=== PATIENT | male | born 1995 | race African-American/Black ===

== ENCOUNTER 2021-02-13 22:01 | Emergency (ER) | payer BC ==
[~2021-02-13] VITALS: Ht 175.3 cm; Wt 63.5 kg
--- NOTE | 2021-02-13 22:08 | NUR ---
Pt brought straight back to [facility] by garment sewer hand Adrian. Pt placed in gown and on bedside monitor and 12 lead EKG performed. VSS, PE WNL, pt complaining of mild pain. 128/82, 96bpm, 100%, 18rpm.
--- NOTE | 2021-02-13 22:12 | NUR ---
EDMD at pt bedside to eval pt.
[2021-02-13] MEDS ORDERED: ASPIRIN 81 MG TAB.CHEW PO ONE (22:15)
--- NOTE | 2021-02-13 22:30 | NUR ---
Per EDMD Dr. Langley, a 20g angio incerted into Lt forearm without difficulty, rainbow drawn and sent to lab. IV flushed with 10cc NS injection, IV flushed nicely with no resistance. Pt tolerated well with no complaints of pain or discomfort. IV heplocked until further orders
[2021-02-13 22:35] LABS: HEMATOCRIT 48.1 % (36.7-47.1); MEAN CORPUSCULAR HEMOGLOBIN 28.3 uug (23.8-33.4); MEAN CORPUSCULAR VOLUME 83.7 fL (73.0-96.2); PLATELET COUNT (AUTO) 265 K/uL (152-348)
[2021-02-13 22:41] LABS: CARBON DIOXIDE 30 mmol/L (21-32); CHLORIDE 103 mmol/L (98-107); CREATININE 1.2 mg/dL (0.6-1.3); GLUCOSE 98 mg/dL (74-106); POTASSIUM 4.1 mmol/L (3.5-5.1); UREA NITROGEN, BLOOD 15 mg/dL (7-18)
[2021-02-13 22:57] LABS: ALANINE AMINOTRANSFERASE 43 U/L (16-63); ALKALINE PHOSPHATASE 92 U/L (50-136); ASPARTATE AMINOTRANSFERASE 18 U/L (15-37); BILIRUBIN,TOTAL 0.4 mg/dL (0.2-1.0); TOTAL PROTEIN, SERUM 7.9 g/dL (6.4-8.2)
[2021-02-13 22:58] LABS: BILIRUBIN,DIRECT < 0.1 mg/dL (0.0-0.2)
[2021-02-14] MEDS ORDERED: ALPR0.25 PO (00:52)
--- NOTE | 2021-02-14 01:45 | NUR ---
IV removed. Catheter intact and site benign. Pressure and 4x4 gauze applied to site. No bleeding noted.
[2021-02-14 01:49] VITALS: BP 130/95
--- NOTE | 2021-02-14 01:50 | NUR ---
Patient discharged to home in stable condition. Written and verbal after care instructions given. Patient verbalizes understanding of instructions. Stressed follow up or return to ER for worsening s/s.
== END 2021-02-14 01:50 | disposition home or self-care (01) ==
LOC: ER 22:01
DX: R07.9 Chest pain, unspecified (principal); R20.2 Paresthesia of skin; R94.31 Abnormal electrocardiogram [ECG] [EKG]; F17.210 Nicotine dependence, cigarettes, uncomplicated; R03.0 Elevated blood-pressure reading, without diagnosis of hypertension
CPT/HCPCS: 36415; 70030-TC; 71045; 85025; 93005; A4663